=== PATIENT | female | born 1945 | race Caucasian/White ===

== ENCOUNTER 2016-12-14 11:47 | Emergency (ER) | payer OTHER, MEDICARE, BC ==
[2016-12-14 12:03] VITALS: BP 182/93; PULSE 89; RESP 18; TEMP 98.8; O2SAT 99
[2016-12-14 12:10] LABS: BASOPHILS % (AUTO) 0 % (0-3); EOSINOPHILS % (AUTO) 1 % (0-9); HEMATOCRIT 36 % (35-47); MEAN CORPUSCULAR HGB CONC 34.4 gm/dl (32.0-36.0); MEAN CORPUSCULAR VOLUME 86 fL (81-99); MONOCYTES % (AUTO) 7.9 % (0-12); NEUTROPHILS % (AUTO) 69.4 % (37-80)
[2016-12-14 12:27] LABS: ALBUMIN 3.7 gm/dl (3.4-5.0); CALCIUM 9.2 mg/dl (8.5-10.1); POTASSIUM 4.2 mMol/L (3.5-5.1)
== END 2016-12-14 13:41 | disposition home or self-care (01) | DRG 552 ==
LOC: ED 11:47
DX: M54.6 Pain in thoracic spine (principal); V53.5XXA Driver of pick-up truck or van injured in collision with car, pick-up truck or van in traffic accident, initial encounter
CPT/HCPCS: 36415; 70450; 71010; 72070; 72120; 72125; 80053; 85025; 85610; 85730; 93005; 99283; 99284